=== PATIENT | female | born 1995 | race African-American/Black ===

== ENCOUNTER 2017-05-20 21:41 | Emergency (ER) | payer OTHER ==
[~2017-05-20] VITALS: Ht 170.2 cm; Wt 93.4 kg
[2017-05-20 22:41] LABS: HEMATOCRIT 39.9 % (36.0-46.0); HEMOGLOBIN 13.4 G/DL (11.9-15.5); MCH 29.8 PG (29.0-34.0); MCHC 33.6 G/DL (30.0-36.0); MCV 88.7 FL (83-99); PLATELET COUNT 361 K/uL (156-360); RBC DIS.WIDTH-CV 12.6 % (11.8-14.6); RBC DIS.WIDTH-SD 40.8 % (39-53); WHITE BLOOD COUNT 9.7 K/uL (4.1-10.2)
[2017-05-20 22:54] LABS: CHLORIDE 105 mEq/L (99-109); POTASSIUM 4.5 mEq/L (3.7-5.4); SODIUM 139 mEq/L (136-147)
[2017-05-20 22:55] LABS: GLUCOSE 110 mg/dL (70-99)
[2017-05-20 22:59] LABS: CREATININE 0.9 mg/dL (0.6-1.3); GFR ESTIMATE (CALCULATED) > 59 mL/min/
[2017-05-20 23:00] LABS: UREA NITROGEN (BUN) 14 mg/dL (9-23)
[2017-05-20 23:08] LABS: TROP-I INTERPRETATION NEGATIVE; TROPONIN-I < 0.01 ng/mL (0.0-0.30)
[2017-05-20 23:37] LABS: QUANTITATIVE HCG < 4.0 MIU/ML
[2017-05-21] MEDS ORDERED: HYDROCHLOROTH12.5 M3 PO (01:31)
[2017-05-21 01:48] VITALS: BP 148/77
[2017-05-21 09:04] LABS: THYROTROPIN (TSH) 1.4 MIU/L (0.4-5.5)
== END 2017-05-21 01:49 | disposition home or self-care (01) ==
LOC: EME 21:41
DX: R07.9 Chest pain, unspecified (principal); I10 Essential (primary) hypertension; Z72.0 Tobacco use
CPT/HCPCS: 71046; 71275; 80048; 84443; 84484; 84702; 85027; 93005; 99281; 99285